=== PATIENT | female | born 2000 | race Caucasian/White ===

== ENCOUNTER 2020-10-09 07:09 | Day surgery (SDC) | payer MEDICAID ==
[~2020-10-09 07:09] MED LIST: Lactated Ringers 1,000 ML IV SCH; Lidocaine 1%/Sod Bicarbonate in NS 8.4% 1 ML Syringe IDERM PRN; Sodium Chloride 0.9% 10 ML Syringe FLUSH PRN
--- NOTE | 2020-10-09 07:30 | PCM.PREANE ---
Preanesthetic Assessment - Procedure Proposed Procedure: EGD and colonoscopy - Anesthesia/Transfusion/Family Hx Anesthesia History: No Prior Anesthesia Transfusion History: No Prior Transfusion(s) - Review of Systems General: No Symptoms Pulmonary: No Symptoms Cardiovascular: No Symptoms Gastrointestinal: No Symptoms Neurological: No Symptoms Other: Reports: Diabetes, Depression, Anxiety - Physical Assessment NPO Status Date: 10/08/20 NPO Status Time: 21:00 Vital Signs: 152/83 81 16 RR 97% 97.1 ASA Class: 3 Mental Status: Alert & Oriented x3 Airway Class: Mallampati = 2 Dentition: Reports: Normal Dentition Thyro-Mental Finger Breadths: 3 Mouth Opening Finger Breadths: 3 ROM/Head Extension: Full Lungs: Clear to Auscultation, Normal Respiratory Effort Cardiovascular: Regular Rate, Regular Rhythm - Allergies Allergies/Adverse Reactions: Allergies Allergy/AdvReac Type Severity Reaction Status Date / Time nickel Allergy Cannot Verified 10/08/20 11:41 Remember - Acknowledgements Anesthesia Type Planned: MAC Pt an Appropriate Candidate for the Planned Anesthesia: Yes Alternatives and Risks of Anesthesia Discussed w Pt/Guardian: Yes Pt/Guardian Understands and Agrees with Anesthesia Plan: Yes PreAnesthesia Questionnaire HEENT History: Reports: Impaired Vision Cardiovascular History: Reports: None Respiratory History: Reports: Asthma Gastrointestinal History: Reports: GERD, Other (See Below) Other Gastrointestinal History: hematochezia, H pylori, fatty liver Genitourinary History: Reports: None [employer] History: Reports: Polycystic Ovaries Musculoskeletal History: Reports: None Neurological History: Reports: None Psychiatric History: Reports: Anxiety Endocrine/Metabolic History: Reports: None Hematologic History: Reports: None Immunologic History: Reports: None Oncologic (Cancer) History: Reports: None Dermatologic History: Reports: None - Infectious Disease History Infectious Disease History: Reports: None - Past Surgical History Head Surgeries/Procedures: Reports: None HEENT Surgical History: Reports: None Cardiovascular Surgical History: Reports: None Respiratory Surgical History: Reports: None GI Surgical History: Reports: None Female Surgical History: Reports: None Male Surgical History: Reports: None Endocrine Surgical History: Reports: None Neurological Surgical History: Reports: None Musculoskeletal Surgical History: Reports: None Oncologic Surgical History: Reports: None Dermatological Surgical History: Reports: None - SUBSTANCE USE Tobacco Use Status *Q: Former Tobacco User Recreational Drug Use History: No - HOME MEDS Home Medications: Home Meds Omeprazole Magnesium [Prilosec Otc] 20 mg PO DAILY 10/08/20 [History] Sertraline [Zoloft] 50 mg PO DAILY 10/08/20 [History] metFORMIN [Glucophage XR] 500 mg PO DAILY 10/08/20 [History] - CURRENT (IN HOUSE) MEDS Current Meds: Current Medications Lactated Ringer's (Ringers, Lactated) 1,000 mls @ 125 mls/hr IV ASDIRECTED NOREEN Stop: 10/09/20 23:00 Lidocaine/Sodium Bicarbonate (Buffered Lidocaine 1% In Ns 8.4%) 0.25 ml IDERM ONETIME PRN PRN Reason: Prior to IV Start Stop: 10/09/20 18:00 Sodium Chloride (Saline Flush) 10 ml FLUSH ASDIRECTED PRN PRN Reason: Keep Vein Open Stop: 10/09/20 18:00
[2020-10-09] MEDS ORDERED: fentaNYL 100 MCG/2 ML SDV ONE (07:56)
[2020-10-09] MEDS ORDERED: Propofol 200 MG/20 ML SDV ONE (07:56)
[2020-10-09] MEDS ORDERED: Midazolam 1 MG/ML 2 ML SDV ONE (07:57)
[2020-10-09] MEDS ORDERED: Lidocaine 1% 4 ML ONE (07:58)
--- NOTE | 2020-10-09 09:00 | PCM.OPNOTE ---
- General Post-Op/Procedure Note Date of Surgery/Procedure: 10/09/20 Operative Procedure(s): EGD and colonoscopy Findings: 1. Gastritis 2. Irregular GE junction 3. Rectal polyp Pre Op Diagnosis: Melena, H. pylori infection, hematochezia Post-Op Diagnosis: same Anesthesia Technique: MAC Primary Surgeon: Flores Martel Anesthesia Provider: Cliff Lin Pathology: 1. Gastric antrum biopsy 2. GE junction biopsies 3. Rectal polyp Fluid Replacement, Intraop: 1,000 Complications: none apparent Condition: Good
--- NOTE | 2020-10-09 09:05 | PCM.PRNOTE ---
- Free Text/Narrative Note: Operative Report Date of Procedure: October 09, 2020 Pre Op Diagnosis: Melena, H. pylori infection, rectal bleeding Post-Op Diagnosis: same Operative Procedures: 1. EGD with biopsy 2. Colonoscopy to the cecum Primary Surgeon: Flores Martel MD Anesthesia Provider: Cliff Lin CRNA Anesthesia Technique: MAC IV Fluid Replacement, Intraop: 1000cc crystalloid Output, Urine Amount: 0cc EBL in mLs: 0cc Findings: 1. Gastritis 2. Irregular GE junction 3. Rectal polyp Specimens: 1. Gastric antrum biopsies 2. Irregular GE junction biopsies 3. Rectal polyp Drain/Tubes: None Indication: The patient is a 20-year-old lady who presented to the clinic for evaluation. The patient reported symptoms of melena and rectal bleeding. She had testing done subsequently that showed H. pylori infection. The patient was consented for a diagnostic EGD and colonoscopy. Risks of bleeding, and perforation were discussed, and the patient agreed to the risks and wished to proceed. Description of the procedure: The patient was taken back to the endoscopy suite, and placed in the left lateral decubitus position. A bite block was placed. The patient was sedated with MAC anesthesia. The Olympus video endoscope was inserted into the oropharynx and guided under direct vision into the esophagus, stomach, and duodenum. The duodenal bulb and second portion of the duodenum were unremarkable. The gastric antrum was inspected and cold biopsy forceps were used to take tissue samples for H. pylori. There was erythema and friability consistent with gastritis. The scope was withdrawn to the stomach and retroflexed. There was no increased fluid, food or secretions in the upper gastrointestinal tract. No erosions or ulcers were noted. The scope was withdrawn to the esophagus. A this point we noted irregularity of the Z-line, and biopsies were taken in 4 quadrants with a cold biopsy forceps. The endoscope was then withdrawn. Next, anorectal examination was performed. No lesions, masses or hemorrhoids were noted externally or on palpation. The scope was placed into the rectum and advanced to cecum. Upon reaching the cecum, and the patients cecum was entered. There was minimal tortuosity of the colon. The ileocecal valve was well visualized and the appendiceal orifice identified. At this point, the scope was slowly withdrawn, paying attention to the mucosa. The patient had good bowel prep, >95% of the mucosa was visible after some washing and suctioning. A 2mm rectal polyp was noted and removed with a Xockets biopsy forceps. In the rectum, scope was retroflexed and some hemorrhoidal tissue was noted. The scope was placed back in the lumen and excess air was aspirated. The scope was removed. The patient tolerated the procedure very well. Complications: None apparent Condition: The patient was transported to PACU in stable condition. Flores Martel MD General Surgery
--- NOTE | 2020-10-09 10:07 | PCM48HPAN ---
Post Anesthesia Note - EVALUATION WITHIN 48HRS OF ANESTHETIC Vital Signs in Normal Range: Yes Patient Participated in Evaluation: Yes Respiratory Function Stable: Yes Airway Patent: Yes Cardiovascular Function Stable: Yes Hydration Status Stable: Yes Pain Control Satisfactory: Yes Nausea and Vomiting Control Satisfactory: Yes Mental Status Recovered: Yes Vital Signs: Last Vital Signs Temp 97.3 F 10/09/20 09:27 Pulse 69 10/09/20 09:27 Resp 17 10/09/20 09:27 BP 109/56 L 10/09/20 09:27 Pulse Ox 99 10/09/20 09:27 - COMMENTS/OBSERVATIONS Free Text/Narrative:: Preparing for home discharge
== END 2020-10-09 09:43 | disposition home or self-care (01) ==
LOC: JD.SDS 07:09
PROVIDERS: ATTEND Surgery
DX: K62.1 Rectal polyp (principal); K29.50 Unspecified chronic gastritis without bleeding; K21.00 Gastro-esophageal reflux disease with esophagitis, without bleeding; K31.89 Other diseases of stomach and duodenum; E11.9 Type 2 diabetes mellitus without complications; Z87.891 Personal history of nicotine dependence; Z91.048 Other nonmedicinal substance allergy status; Z79.84 Long term (current) use of oral hypoglycemic drugs; Z79.899 Other long term (current) drug therapy
CPT/HCPCS: 43239; 45380; 82962; J2250; J2704; J3010; J7120; 00813

== ENCOUNTER 2022-04-27 22:15 | Emergency (ER) | payer BC, MEDICAID | END 2022-04-27 23:58 | disposition home or self-care (01) | LOC: JD.ED 22:15 | DX: G44.209 Tension-type headache, unspecified, not intractable (principal); K21.9 Gastro-esophageal reflux disease without esophagitis; E66.9 Obesity, unspecified; Z68.30 Body mass index [BMI] 30.0-30.9, adult; Z91.048 Other nonmedicinal substance allergy status; Z79.899 Other long term (current) drug therapy; Z86.16 Personal history of COVID-19 | CPT/HCPCS: 99284 ==

== ENCOUNTER 2024-05-18 00:29 | Inpatient (IN) | payer OTHER ==
[2024-05-18] MEDS ORDERED: Lidocaine 1% 50 ML MDV INJECT PRN (01:31)
[2024-05-18] MEDS ORDERED: Nalbuphine 10 MG/1 ML Vial IVPUSH PRN (01:31)
[2024-05-18] MEDS ORDERED: Ondansetron 4 MG/2 ML SDV IVPUSH PRN (01:31)
[2024-05-18] MEDS ORDERED: Sodium Chloride 0.9% 10 ML Syringe FLUSH PRN (01:31)
[2024-05-18] MEDS ORDERED: Oxytocin/0.9 % Sodium Chloride 30 UNIT/500 ML BAG IV SCH (01:45)
[2024-05-18 01:55] LABS: BASOPHILS ABSOLUTE AUTO 0.1 K/mm3 (0.0-0.2); BASOPHILS PERCENT AUTO 0.4 % (0.0-1.0); EOSINOPHILS ABSOLUTE AUTO 0.1 K/mm3 (0.0-0.4); EOSINOPHILS PERCENT AUTO 0.6 % (0.0-6.0); HEMATOCRIT 38.8 % (37.0-47.0); HEMOGLOBIN 12.8 gm/dl (12.0-16.0); IMMATURE GRAN ABSOLUTE AUTO 0.25 K/mm3 (0.00-0.05); IMMATURE GRAN PERCENT AUTO 1.8 % (0.0-0.4); LYMPHOCYTES ABSOLUTE AUTO 2.2 K/mm3 (1.0-4.8); LYMPHOCYTES PERCENT AUTO 16.2 % (24.0-44.0); MEAN CORPUSCULAR HEMOGLOBIN 30.6 pg (28.0-32.0); MEAN CORPUSCULAR VOLUME 92.8 fl (83.0-99.0); MEAN PLATELET VOLUME 11.3 fl (9.4-12.3); MONOCYTES ABSOLUTE AUTO 1.1 K/mm3 (0.0-0.8); MONOCYTES PERCENT AUTO 7.8 % (0.0-8.0); NEUTROPHILS ABSOLUTE AUTO 10.1 K/mm3 (1.8-7.7); NEUTROPHILS PERCENT AUTO 73.2 % (41.0-71.0); PLATELET COUNT,PLT 271 K/mm3 (150-400); RED BLOOD CELL COUNT 4.18 M/mm3 (4.10-5.30); WHITE BLOOD CELL COUNT,WBC 13.85 K/mm3 (3.9-11.3)
[2024-05-18] MEDS: Ampicillin 2 GM in Sodium Chloride 0.9% 100 ML IV ONE ×2 (01:57→03:39)
[2024-05-18] MEDS ORDERED: ePHEDrine 50 MG/ML SDV IVPUSH PRN (02:17)
[2024-05-18] MEDS ORDERED: Bupivacaine/fentaNYL/NS 100 ML Bag EPIDUR PRN (02:17)
[2024-05-18] MEDS ORDERED: fentaNYL 100 MCG/2 ML SDV EPIDUR PRN (02:17)
[2024-05-18] MEDS ORDERED: diphenhydrAMINE 50 MG/ML SDV IVPUSH PRN (02:17)
[2024-05-18] MEDS: Lactated Ringers 1,000 ML IV SCH (04:08)
[2024-05-18] MEDS: Oxytocin/0.9 % Sodium Chloride 30 UNIT/500 ML BAG IV SCH (04:12)
[2024-05-18] MEDS: FLU (Flulaval Triv) 24-25(6MOS UP)/PF 45 MCG/0.5 ML Syringe IM ONE (04:36)
[2024-05-18] MEDS ORDERED: Ampicillin 1 GM in Sodium Chloride 0.9% 100 ML IV SCH (05:30)
[2024-05-18] MEDS: Ampicillin 1 GM in Sodium Chloride 0.9% 100 ML IV SCH (06:06)
[2024-05-18] MEDS ORDERED: Acetaminophen 325 MG Tab PO PRN (11:03)
[2024-05-18] MEDS: Ibuprofen 600 MG Tab PO SCH (11:05)
[2024-05-18] MEDS: Witch Hazel Medicated Pads 40/Jar TOP PRN (11:24)
[2024-05-18] MEDS: Benzocaine/Menthol 20%-0.5% Spray 78 GM Cannister TOP PRN (11:24)
[2024-05-19] MEDS: Docusate Sodium 100 MG Cap PO PRN (00:06)
[2024-05-19] MEDS: Sodium Chloride 0.9% 10 ML Syringe FLUSH SCH (05:10)
[2024-05-19] MEDS: Sertraline 50 MG Tab PO SCH (11:00)
== END 2024-05-20 12:36 | disposition home or self-care (01) | DRG 807 ==
LOC: JD.OBCHECK 00:29 → JD.OB 00:37 → JD.OBCHECK 01:31 → JD.OB 01:39 → OBSVTOIN 09:36 → JD.OB 10:35
PROVIDERS: ADMIT Obstetrics & Gynecology; ATTEND Obstetrics & Gynecology
PROC: 10E0XZZ Delivery of Products of Conception, External Approach (ICD-10-PCS; principal; 2024-05-18)
DX: O42.02 Full-term premature rupture of membranes, onset of labor within 24 hours of rupture (principal); Z37.0 Single live birth; O99.824 Streptococcus B carrier state complicating childbirth; O70.0 First degree perineal laceration during delivery; O99.344 Other mental disorders complicating childbirth; F41.9 Anxiety disorder, unspecified; F32.A Depression, unspecified; Z3A.38 38 weeks gestation of pregnancy; Z91.048 Other nonmedicinal substance allergy status; Z98.890 Other specified postprocedural states; Z86.16 Personal history of COVID-19; Z87.891 Personal history of nicotine dependence
CPT/HCPCS: 36415; 59025; 59409; 84112; 85025; 86592; 86850; 86900; 86901; A9270-GY; J0290; J3490; J7120; J7999

== ENCOUNTER 2024-05-21 02:49 | Emergency (ER) | payer OTHER | END 2024-05-21 04:01 | disposition home or self-care (01) | LOC: JD.ED 02:49 | DX: O72.2 Delayed and secondary postpartum hemorrhage (principal); O99.63 Diseases of the digestive system complicating the puerperium; K21.9 Gastro-esophageal reflux disease without esophagitis; Z86.16 Personal history of COVID-19; Z79.899 Other long term (current) drug therapy; Z91.048 Other nonmedicinal substance allergy status | CPT/HCPCS: 99282; 99283 ==